=== PATIENT | female | born 1965 | race Caucasian/White ===

== ENCOUNTER 2020-07-23 08:52 | Emergency (ER) | payer MEDICAID, SELFPAY ==
[2020-07-23 09:45] VITALS: BP 134/84; PULSE 100; RESP 18; TEMP 36.3; O2SAT 99; BMI 26.2
--- NOTE | 2020-07-23 09:51 | XR_ITS ---
EXAMINATION: XR CHEST CLINICAL INFORMATION: Shortness of breath and wheezing. Covid exposure. COMPARISON: None TECHNIQUE: Frontal view of the chest was obtained. FINDINGS: No significant abnormality is noted involving the heart, lungs, mediastinum, bony thorax or soft tissues. XR/XR chest 1V IMPRESSION: Unremarkable examination.
--- NOTE | 2020-07-23 10:10 | ED_ITS ---
HPI - Asthma General Chief Complaint: Asthma Stated Complaint: asthma Time Seen by Provider: 07/23/20 09:51 Source: patient Mode of arrival: ambulatory Limitations: no limitations History of Present Illness HPI Narrative: 55 y/o female with history of asthma, Celiac's disease, hx hepatitis C who presents with asthma, as well as body aches, fatigue, headaches and nausea for the last 3 days. She has had a exposure to COVID at work. She has been taking her albuterol inhaler as well as her steroid inhaler. She reports fatigue when speaking. She has a new dry cough without phlegm. She denies fever, chills, vomiting, diarrhea, abdominal pain, chest pain. She has not taken any medications for the body aches. MD complaint: asthma attack Onset (ago): day(s) (3) Severity: moderate Context: other (exposure to COVID-19) Associated symptoms: dry cough Asthma History: adult onset Related Data Current Asthma Therapy: inhaled bronchodilator and inhaled steroid Previous Rx's Medication Instructions Recorded prednisone 40 mg PO DAILY #10 tab 07/23/20 Allergies Allergy/AdvReac Type Severity Reaction Status Date / Time aspirin [ASA] Allergy Swelling Verified 07/23/20 09:49 azithromycin Allergy Anaphylaxis Verified 07/23/20 09:49 ibuprofen [From Motrin] Allergy Swelling Verified 07/23/20 09:49 morphine Allergy Unknown Verified 07/23/20 09:49 paroxetine [From Paxil] Allergy Unknown Verified 07/23/20 09:49 Penicillins [PCN] Allergy Anaphylaxis Verified 07/23/20 09:49 Review of Systems Review of Systems: Constitutional: No Fever, No Chills ENT/Mouth: No sore throat, No Rhinorrhea, No Swallowing Difficulty Eyes: No Eye Pain, No Swelling, No Redness Cardiovascular: No Chest Pain, + SOB, No Orthopnea, No Edema Respiratory: + Cough, No Sputum, + Wheezing, No dyspnea Gastrointestinal: + Nausea, No Vomiting, No Diarrhea, No abdominal Pain Genitourinary: No Dysuria, No Urinary Frequency, No Hematuria Musculoskeletal: + joint pain, + Myalgias Skin: No Skin Lesions, No rash Neuro: + Weakness, No Numbness, No Dizziness, + Headache Psych: No Anxiety/Panic, No Depression Heme/Lymph: No Bruising, No Lymphadenopathy PMFSH Past Medical History Attestation statement: The following information was validated with the patient. Medical History Asthma Social History Social History Advance Directives: No Advance Directives Information Provided: No Physical Exam Vital Signs: Vital Signs: Last Vital Signs Temp 97.2 F 07/23/20 11:53 Pulse 86 07/23/20 11:53 Resp 16 07/23/20 11:53 BP 149/90 H 07/23/20 11:53 Pulse Ox 98 07/23/20 11:53 Body Mass Index 26.2 Appearance: Alert. Oriented X3. No acute distress. Eyes: Pupils equal, round and reactive to light. ENT: Pharynx normal. Neck: Normal inspection. Neck supple. CVS: Mild tachycardia, regular rhythm. Pulses normal. Respiratory: No respiratory distress. Breath sounds normal. No wheezing or rhonchi. Abdomen: Soft and nontender. +BS x4 Skin: Skin warm and dry. Normal skin color. Normal skin turgor. No rashes. Extremities: No lower extremity edema. Negative Alonso's sign. Tender anterior quadriceps Neuro: Oriented X 3. No motor deficit. No sensory deficit. Course Course Course Narrative: 55 y/o with history of well controlled asthma presenting with 3 days of flu-like/COVID-like symptoms after known exposure to COVID-19. She is non-toxic appearing with Spo2 99% on RA. No resp distress and no wheezing on exam. Concern for COVID-19. Will get CXR to r/o PNA. Will check resp panel. Reevaluation(s) Reevaluation #1: CXR negative. COVID came back positive. She was counseled on her diagnosis and management. Instructed to return to ER if develops QUEZADA, difficulty breathing or worsening SOB. Prednisone prescribed. Stable for dischar ge. MDM - Asthma Lab Data Labs: Lab Results 07/23/20 Range/Units 10:09 Coronavirus (PCR) POSITIVE A (Negative) Influenza Type A (PCR) NEGATIVE (Negative) Influenza Type B (PCR) NEGATIVE (Negative) RSV RNA Qual (PCR) NEGATIVE (Negative) Critical Care Time Critical Care Time Critical Care Time: No Discharge Plan Discharge Clinical Impression: COVID-19 Patient Disposition: Home, Self-Care Instructions: Asthma (ED), COVID-19 (Coronavirus Disease 2019) (ED) Additional Instructions: You were found to be COVID-19 POSITIVE today. Your chest x-ray and oxygen levels were normal. Take the prescribed medication for your asthma. Continue to use your inhalers as directed. Rest. Drink plenty of fluids. Do not go out in public for the next 14 days. Take over the counter cold/flu medications as needed for your symptoms. Take Tylenol and/or Motrin as needed for fevers and body aches. Follow up with your doctor this week. If you shortness of breath worsens , if you develop difficulty breathing or any other concerning symptom come back to the ER for further evaluation. Prescriptions: New prednisone 20 mg tablet 40 mg PO DAILY Qty: 10 RF: 0 Stand Alone Forms: Work/School Release Interventions: ED Discharge Assessment Last Done: 07/23/20 11:54 Discharge Date/Time: 07/23/20 11:55
[2020-07-23 10:54] LABS: Influenza A PCR NEGATIVE (Negative); Influenza B PCR NEGATIVE (Negative); Resp Syncy Virus RNA Qual PCR NEGATIVE (Negative); SARS COV2 PCR INHOUSE POSITIVE (Negative)
[2020-07-23 11:53] VITALS: BP 149/90; PULSE 86; RESP 16; TEMP 36.2; O2SAT 98
== END 2020-07-23 11:55 | disposition home or self-care (01) ==
PROVIDERS: Physician Assistant; Emergency Provider Internal Medicine; PCP Internal Medicine
DX: U07.1 COVID-19 (principal); J45.909 Unspecified asthma, uncomplicated; Z79.51 Long term (current) use of inhaled steroids; Z79.899 Other long term (current) drug therapy
CPT/HCPCS: 0241U; 36415; 71045; 99283; 99284

== ENCOUNTER 2021-02-09 13:13 | Outpatient (REF) | payer MEDICAID, SELFPAY | END 2021-02-09 13:14 | disposition home or self-care (01) | LOC: HO.LAB 13:13 | PROVIDERS: Visit Provider Internal Medicine | DX: Z20.822 Contact with and (suspected) exposure to COVID-19 (principal) | CPT/HCPCS: C9803; U0003; U0005 ==